=== PATIENT | male | born 1925 | race Caucasian/White ===

== ENCOUNTER 2017-01-13 14:04 | Inpatient (IN) ==
[2017-01-13] MEDS: *HR* Warfarin 5 MG TABLET PO SCH (18:21)
[2017-01-13] MEDS: *HR* Metformin 500 MG TABLET PO SCH (20:32)
[2017-01-14 05:35] LABS: Basophils # 0.1 K/mcL (0.0-0.2); Basophils % 0.7 %; Eosinophils # 0.1 K/mcL (0.0-0.6); Eosinophils % 0.4 %; Hemoglobin 18.6 g/dL (12.9-16.9); Immature Granulocytes % 0.5 % (0-4); Lymphocytes # 1.9 K/mcL (0.6-4.6); Mean Corpuscular HGB Conc 33.8 g/dL (31.6-35.5); Mean Corpuscular Hemoglobin 29.3 pg (28.0-33.3); Mean Corpuscular Volume 86.8 fL (83.0-100.0); Mean Platelet Volume 10.6 fL (9.4-12.4); Monocytes # 1.4 K/mcL (0.0-1.3); Monocytes % 8.5 %; Neutrophils # 12.4 K/mcL (1.6-8.9); Platelet Count 167 K/mcL (140-400); Red Blood Count 6.35 M/mcL (4.19-5.50); Red Cell Distribution Width 13.9 % (11.5-14.5); Segmented Neutrophils % 77.9 %
[2017-01-14 05:36] LABS: INR 1.4; Prothrombin Time 14.8 Seconds (9.4-12.1)
[2017-01-14 05:37] LABS: Activated Partial Thrombo Time 33.2 Seconds (26.0-36.0)
[2017-01-14 05:42] LABS: Hematocrit 55.1 % (37.5-50.1)
[2017-01-14 05:47] LABS: BUN/Creatinine Ratio 30 (6-26); Blood Urea Nitrogen 33 mg/dL (8-26); Calcium 9.4 mg/dL (8.6-10.8); Carbon Dioxide 21 mEq/L (19-29); Chloride 109 mEq/L (98-109); Glucose 339 mg/dL (70-99); Osmolality,Calculated 313 (280-300); Potassium 4.4 mEq/L (3.5-4.5); Sodium 141 mEq/L (136-145); eGFR For African Americans > 60 (> 60); eGFR For Non-African Americans > 60 (> 60)
[2017-01-14] MEDS: *HR* GlipiZIDE 5 MG TABLET PO SCH (09:23)
[2017-01-14] MEDS: Furosemide 20 MG TABLET PO SCH (09:23)
[2017-01-14] MEDS: *HR* Digoxin 0.125 MG TABLET PO SCH (09:23)
[2017-01-14] MEDS: Aspirin 81 MG TAB.CHEW PO SCH (09:23)
--- NOTE | 2017-01-14 11:37 | Internal Med History&Physical ---
Date of Encounter: 01/14/17 Time of Encounter: 11:35 Assessment and Plan (1) Acute CVA (cerebrovascular accident) Current visit: Yes Status: Acute MRI of the brain shows acute infarct on the right basal ganglia along with multiple lacunar infarcts on the right frontal. PT and OT to work on improving ADL. Transfer, safety balance. Speech for swallowing evaluation. (2) Urinary retention Current visit: Yes Status: Acute Orellana catheter in place Internal Medicine - H&P: HPI Admitted From: Intrahospital Transfer Plans for Post Hospital Care: Home History of present illness: Mr. Parnell is a 89 year old male admitted to this facility for rehabilitation. Patient initially presented with an acute onset of mental status with some slurred speech. He initially had left-sided neglect. He had no significant focal weakness. Patient's still has baseline cognitive and neglect of the left side of the body. He also has a right-sided gaze. He has almost complete paralysis of the left side Past Med Surg Social Fam HX - Past Medical History Medical history: coronary artery disease, CVA, diabetes, hyperlipidemia, hypertension, myocardial infarction, other Psychiatric history: no psych history - Social History Smoking Status: Former smoker Smokeless Tobacco Status: No Alcohol use: none Drug use: none Internal Medicine - H&P: Meds Atenolol [Tenormin] 25 mg PO DAILY 01/09/17 [History] Carvedilol [Coreg] 6.25 mg PO BIDWM 01/09/17 [History] Digoxin [Lanoxin] 0.125 mg PO DAILY 01/09/17 [History] GlipiZIDE [Glucotrol] 5 mg PO DAILY 01/09/17 [History] Metformin [Glucophage] 500 mg PO HS 01/09/17 [History] Aspirin 81 mg PO DAILY #30 tab.chew 01/13/17 [Rx] Atorvastatin [Lipitor] 40 mg PO HS #30 tablet 01/13/17 [Rx] Lansoprazole [Prevacid] 15 mg PO DAILY@0630 #30 capsule. 01/13/17 [Rx] Levofloxacin [Levaquin] 500 mg PO DAILY #5 tablet 01/13/17 [Rx] Warfarin [Coumadin] 5 mg PO 1800 01/13/17 [History] Furosemide [Lasix] 20 mg PO DAILY #0 01/20/17 [Rx] Allergies Penicillins [PCN] Allergy (Verified 01/09/17 14:05) See Comments All Systems PM: A 10-system review of systems was performed and is negative for pertinent findings except as documented above in the HPI. - Cardiovascular Cardiovascular ROS IM: no chest pain, no diaphoresis, no dyspnea, no lightheadedness, no palpitations, no syncope - Respiratory Respiratory: no cough, no dyspnea, no wheezing, no excessive phlegm production - Gastrointestinal Gastrointestinal: no abdominal pain, no diarrhea, no hematemesis, no hematochezia, no melena, no nausea, no vomiting - Neurological Neurological ROS: abnormal gait, abnormal movements, frequent falls, lack of coordination, weakness - Constitutional Vitals: Temp Pulse Resp BP Pulse Ox 97.3 F L 73 20 185/95 95 01/14/17 07:16 01/14/17 07:16 01/14/17 07:16 01/14/17 07:16 01/14/17 07:16 General appearance: Present: A&O X 2 - Respiratory Respiratory exam: Present: CTAB. Absent: accessory muscle use, rales, rhonchi, wheezes - Cardiovascular Cardiovascular exam: Present: RRR, +S1, +S2. Absent: diastolic murmur, gallop, rubs, systolic murmur - GI/Abdominal GI/Abdominal exam: Present: normal bowel sounds, soft, no peritoneal signs. Absent: distended, tenderness - Extremities Exam Extremities exam: Present: warm, radial pulses palpable and symetrical. Absent : calf tenderness, cyanotic, pedal edema - Neurological Exam Additional comments: Left-sided neglect. Able to squeeze hand. A port drift to the right arm noted. Awake, alert. Oriented to person. Follows commands appropriately. Significant weakness of the upper or lower extremities on the left side Internal Med - H&P Results - Labs CBC & Chem 7: 01/14/17 05:10 01/14/17 05:10 Labs: Short CBC 01/14/17 Range/Units 05:10 WBC 15.9 H (4.3-11.1) K/mcL Hgb 18.6 H (12.9-16.9) g/dL Hct 55.1 H (37.5-50.1) % Plt Count 167 (140-400) K/mcL Neutrophils # 12.4 H (1.6-8.9) K/mcL BMP 01/14/17 05:10 Sodium 141 Potassium 4.4 Chloride 109 Carbon Dioxide 21 BUN 33 H Creatinine 1.11 Glucose 339 H Calcium 9.4
[2017-01-14] MEDS: *HR* Warfarin 5 MG TABLET PO SCH (19:05)
[2017-01-14] MEDS: *HR* Metformin 500 MG TABLET PO SCH (21:50)
--- NOTE | 2017-01-15 01:49 | Internal Med Progress Note ---
Date of Encounter: 01/15/17 Time of Encounter: 09:04 - Assessment and plan (1) Acute CVA (cerebrovascular accident) Current Visit: Yes Status: Acute Assessment and plan: Left-sided neglect. Left leg flaccid. (2) Urinary retention Current Visit: Yes Status: Chronic - Time Spent With Patient less than 15 minutes - Subjective Interval history: No new voiced complaint. Still complains of generalized fatigue and feeling weak. Still confused regarding place. - Constitutional Vitals: Temp Pulse Resp BP Pulse Ox 98.2 F 72 14 135/80 94 L 01/14/17 19:46 01/14/17 19:46 01/14/17 19:46 01/14/17 19:46 01/14/17 19:46 General appearance: Present: A&O X 2 - Respiratory Respiratory exam: Present: CTAB. Absent: accessory muscle use, rales, rhonchi, wheezes - Cardiovascular Cardiovascular exam: Present: RRR, +S1, +S2. Absent: diastolic murmur, gallop, rubs, systolic murmur - GI/Abdominal GI/Abdominal exam: Present: normal bowel sounds, soft, no peritoneal signs. Absent: distended, tenderness - Extremities Exam Extremities exam: Present: warm, radial pulses palpable and symetrical. Absent : calf tenderness, cyanotic, pedal edema Internal Medicine: Result - Labs CBC & Chem 7: 01/14/17 05:10 01/14/17 05:10 Labs: Short CBC 01/14/17 Range/Units 05:10 WBC 15.9 H (4.3-11.1) K/mcL Hgb 18.6 H (12.9-16.9) g/dL Hct 55.1 H (37.5-50.1) % Plt Count 167 (140-400) K/mcL Neutrophils # 12.4 H (1.6-8.9) K/mcL BMP 01/14/17 05:10 Sodium 141 Potassium 4.4 Chloride 109 Carbon Dioxide 21 BUN 33 H Creatinine 1.11 Glucose 339 H Calcium 9.4 - ABG Interpretation ABG results: PT/INR, D-dimer PT 14.8 Seconds (9.4-12.1) H 01/14/17 05:10 Consult Discharge Plan - Plan Referrals: Devon Daugherty DO [Primary Care Provider] -
[2017-01-15 05:16] LABS: INR 1.4; Prothrombin Time 15.1 Seconds (9.4-12.1)
[2017-01-15] MEDS: Furosemide 20 MG TABLET PO SCH (08:07)
[2017-01-15] MEDS: Aspirin 81 MG TAB.CHEW PO SCH (08:07)
[2017-01-15] MEDS: *HR* GlipiZIDE 5 MG TABLET PO SCH (08:08)
[2017-01-15] MEDS: *HR* Digoxin 0.125 MG TABLET PO SCH (08:08)
[2017-01-15] MEDS: *HR* Warfarin 5 MG TABLET PO SCH (17:01)
[2017-01-15] MEDS: *HR* Metformin 500 MG TABLET PO SCH (21:15)
[2017-01-16 05:41] LABS: Basophils # 0.1 K/mcL (0.0-0.2); Basophils % 0.5 %; Eosinophils # 0.1 K/mcL (0.0-0.6); Eosinophils % 0.8 %; Hemoglobin 18.8 g/dL (12.9-16.9); Immature Granulocytes % 0.7 % (0-4); Lymphocytes # 1.9 K/mcL (0.6-4.6); Lymphocytes % 10.9 %; Mean Corpuscular HGB Conc 33.4 g/dL (31.6-35.5); Mean Corpuscular Hemoglobin 29.2 pg (28.0-33.3); Mean Corpuscular Volume 87.6 fL (83.0-100.0); Mean Platelet Volume 10.5 fL (9.4-12.4); Monocytes # 1.4 K/mcL (0.0-1.3); Monocytes % 8.1 %; Neutrophils # 13.5 K/mcL (1.6-8.9); Platelet Count 148 K/mcL (140-400); Red Blood Count 6.43 M/mcL (4.19-5.50); Red Cell Distribution Width 13.6 % (11.5-14.5)
[2017-01-16 05:52] LABS: BUN/Creatinine Ratio 31 (6-26); Blood Urea Nitrogen 36 mg/dL (8-26); Carbon Dioxide 27 mEq/L (19-29); Chloride 110 mEq/L (98-109); Glucose 289 mg/dL (70-99); INR 2.3; Osmolality,Calculated 323 (280-300); Potassium 3.9 mEq/L (3.5-4.5); Prothrombin Time 25.9 Seconds (9.4-12.1); Sodium 147 mEq/L (136-145); eGFR For African Americans > 60 (> 60); eGFR For Non-African Americans 60 (> 60)
[2017-01-16 07:36] LABS: Hematocrit 56.3 % (37.5-50.1)
[2017-01-16] MEDS: Aspirin 81 MG TAB.CHEW PO SCH (07:54)
[2017-01-16] MEDS: *HR* Digoxin 0.125 MG TABLET PO SCH (07:54)
[2017-01-16] MEDS: Furosemide 20 MG TABLET PO SCH (07:55)
[2017-01-16] MEDS: *HR* GlipiZIDE 5 MG TABLET PO SCH ×2 (07:55→17:10)
[2017-01-16] MEDS: *HR* Warfarin 5 MG TABLET PO SCH (17:10)
[2017-01-16] MEDS: *HR* Metformin 500 MG TABLET PO SCH (22:12)
[2017-01-17 05:20] LABS: INR 3.4; Prothrombin Time 38.5 Seconds (9.4-12.1)
[2017-01-17] MEDS: Furosemide 20 MG TABLET PO SCH (08:49)
[2017-01-17] MEDS: *HR* Digoxin 0.125 MG TABLET PO SCH (08:49)
[2017-01-17] MEDS: *HR* GlipiZIDE 5 MG TABLET PO SCH ×2 (08:50→17:30)
[2017-01-17] MEDS: Aspirin 81 MG TAB.CHEW PO SCH (08:50)
[2017-01-17] MEDS ORDERED: *HR* Dextrose 50 % in Water (Syg) 50 ML SYRINGE IVP PRN (12:02)
[2017-01-17] MEDS ORDERED: Dextrose Gel 15 GM PO PRN ×2 (12:02)
[2017-01-17] MEDS ORDERED: D5% in Water 1,000 ML IV PRN (12:02)
--- NOTE | 2017-01-17 13:24 | Internal Med Progress Note ---
Date of Encounter: 01/17/17 Time of Encounter: 13:22 - Assessment and plan (1) Acute CVA (cerebrovascular accident) Current Visit: Yes Status: Acute Assessment and plan: CVS CT report. Patient's working with her therapist (2) Acute ischemic right MCA stroke Current Visit: No Status: Acute Assessment and plan: The cause of his rehabilitation (3) Acute kidney injury Current Visit: No Status: Acute Assessment and plan: Patient still may have little elevation of his BUN - Time Spent With Patient less than 15 minutes - Subjective Interval history: Patient's condition is pretty poor overall. Due to his advanced age and microvascular disease along with thalamic stroke his prognosis is rather dim - Constitutional Vitals: Temp Pulse Resp BP Pulse Ox 97.8 F 58 16 151/62 95 01/17/17 07:00 01/17/17 07:00 01/17/17 07:00 01/17/17 07:00 01/17/17 07:00 General appearance: Present: A&O X 2 - Head Head exam: Present: atraumatic, normocephalic - Respiratory Respiratory exam: Present: CTAB. Absent: accessory muscle use, rales, rhonchi, wheezes - Cardiovascular Cardiovascular exam: Present: RRR, +S1, +S2. Absent: diastolic murmur, gallop, rubs, systolic murmur Internal Medicine: Result - Labs CBC & Chem 7: 01/16/17 04:55 01/16/17 04:55 - ABG Interpretation ABG results: PT/INR, D-dimer PT 38.5 Seconds (9.4-12.1) H 01/17/17 05:00 Consult Discharge Plan - Plan Referrals: Devon Daugherty DO [Primary Care Provider] -
[2017-01-17] MEDS: Insulin LISPRO 300 UNITS/3 ML VIAL SQ SCH ×2 (17:29→22:09)
[2017-01-17] MEDS ORDERED: *HR* Warfarin 3 MG TABLET PO ONE (18:00)
[2017-01-17] MEDS: *HR* Metformin 500 MG TABLET PO SCH (22:05)
[2017-01-18 05:53] LABS: Prothrombin Time 44.9 Seconds (9.4-12.1)
--- NOTE | 2017-01-18 08:36 | Internal Med Progress Note ---
Date of Encounter: 01/18/17 Time of Encounter: 08:35 - Assessment and plan (1) Acute CVA (cerebrovascular accident) Current Visit: Yes Status: Acute Assessment and plan: PT and OT working to improve balance, gait and transfer. Patient assisted with transfer from w/c to standing frame with x2 people. Patient able to tolerate about 10 minutes in standing frame noting some light headedness. Also worked on posture, needing constant cues to correct. Patient then assisted back w/c to rest. Patient noted he needed to use restroom. Assisted back to room. Patient able to complete transfer as marked with constant cues needed to attempt to use LE's.t (2) Urinary retention Current Visit: Yes Status: Chronic - Time Spent With Patient less than 15 minutes - Subjective Interval history: No new voiced complaint. Still complains of generalized fatigue and feeling weak. Still confused regarding place. Denies shortness of breath. Denies chest pain. Good appetite. - Constitutional Vitals: Temp Pulse Resp BP Pulse Ox 98.0 F 71 16 164/77 94 L 01/18/17 07:10 01/18/17 07:10 01/18/17 07:10 01/18/17 07:10 01/18/17 07:10 General appearance: Present: A&O X 2, pleasant - Respiratory Respiratory exam: Present: CTAB. Absent: accessory muscle use, rales, rhonchi, wheezes - Cardiovascular Cardiovascular exam: Present: RRR, +S1, +S2. Absent: diastolic murmur, gallop, rubs, systolic murmur - GI/Abdominal GI/Abdominal exam: Present: normal bowel sounds, soft, no peritoneal signs. Absent: distended, tenderness - Extremities Exam Extremities exam: Present: warm, radial pulses palpable and symetrical. Absent : calf tenderness, cyanotic, pedal edema - Neurological Exam Neurological exam: Present: abnormal gait, speech deficit - Expanded Neurological Exam Neurological exam expanded: Present: expressive aphasia Speech: Present: garbled Internal Medicine: Result - Labs CBC & Chem 7: 01/16/17 04:55 01/16/17 04:55 - ABG Interpretation ABG results: PT/INR, D-dimer PT 44.9 Seconds (9.4-12.1) H* 01/18/17 05:00 Consult Discharge Plan - Plan Referrals: Devon Daugherty DO [Primary Care Provider] -
[2017-01-18] MEDS: *HR* GlipiZIDE 5 MG TABLET PO SCH ×2 (08:49→17:11)
[2017-01-18] MEDS: Aspirin 81 MG TAB.CHEW PO SCH (08:49)
[2017-01-18] MEDS: Furosemide 20 MG TABLET PO SCH (08:49)
[2017-01-18] MEDS: *HR* Digoxin 0.125 MG TABLET PO SCH (08:49)
[2017-01-18] MEDS: Insulin LISPRO 300 UNITS/3 ML VIAL SQ SCH ×4 (08:50→20:14)
--- NOTE | 2017-01-18 15:58 | Physcial Medicine-Consult Note ---
Date of Encounter: 01/18/17 Time of Encounter: 15:56 Physical Medicine - AP (1) Cerebrovascular accident Status: Acute Assessment and plan: 1. Rehab: Patient will continue with PT/OT/ST/TR as tolerated to address transfers, ADLS, gait, speech, swallow and safety. His rehab is limited by his severe fatigue. We will start him on provigil to help with arousal. 2. : continue with burgos catheter Code(s): I63.9 - Cerebral infarction, unspecified SNOMED Code(s): 100837100 Physical Medicine - HPI - Data of Consult Consult date: 01/18/17 Requesting Physician: Marco Cyr DO Primary Care Provider: Lola Garcia - Consult Narrative Reason for consult: CVA History of present illness: Mr. Parnell is a 89 year old male who presented with mental status changes, slurred speech and left hemiplegia. Patient underwent an mri which revealed a right basal ganglia infarct with multiple lacunar infarcts in the right frontal lobe. He was stabilized and admitted to the swing unit for ongoing rehabilitation. CC: Marco Cyr DO Past Med Surg Social Fam HX - Past Medical History Medical history: coronary artery disease, CVA, diabetes, hyperlipidemia, hypertension, myocardial infarction, other Psychiatric history: no psych history - Social History Smoking Status: Former smoker Smokeless Tobacco Status: No Alcohol use: none Drug use: none Medications and Allergies Atenolol [Tenormin] 25 mg PO DAILY 01/09/17 [History] Carvedilol [Coreg] 6.25 mg PO BIDWM 01/09/17 [History] Digoxin [Lanoxin] 0.125 mg PO DAILY 01/09/17 [History] GlipiZIDE [Glucotrol] 5 mg PO DAILY 01/09/17 [History] Metformin [Glucophage] 500 mg PO HS 01/09/17 [History] Aspirin 81 mg PO DAILY #30 tab.chew 01/13/17 [Rx] Atorvastatin [Lipitor] 40 mg PO HS #30 tablet 01/13/17 [Rx] Lansoprazole [Prevacid] 15 mg PO DAILY@0630 #30 capsule. 01/13/17 [Rx] Levofloxacin [Levaquin] 500 mg PO DAILY #5 tablet 01/13/17 [Rx] Warfarin [Coumadin] 5 mg PO 1800 01/13/17 [History] Furosemide [Lasix] 20 mg PO DAILY #0 01/20/17 [Rx] Allergies Penicillins [PCN] Allergy (Verified 01/09/17 14:05) See Comments - Constitutional Constitutional: Present: fatigue - Cardiovascular Cardiovascular: Absent: chest pain - Respiratory Respiratory: Absent: dyspnea - Musculoskeletal Musculoskeletal: Absent: arthralgias Physical Medicine - Exam - Constitutional Vitals: Temp Pulse Resp BP Pulse Ox 98.0 F 71 16 164/77 94 L 01/18/17 07:10 01/18/17 07:10 01/18/17 07:10 01/18/17 07:10 01/18/17 07:10 Exam: Patient is lying in bed. Appears fatigued. Attempts to anwer questions. Follows simple one step commands. - Head Additional comments: No facial droop. EOMI. - Respiratory Respiratory exam: Present: CTAB - Cardiovascular Cardiovascular exam: Present: RRR - GI/Abdominal GI/Abdominal exam: Present: normal bowel sounds, soft. Absent: tenderness - Additional comments: burgos catheter in place - Extremities Exam Extremities exam: Absent: calf tenderness Additional comments: Patient able to move right upper limb without difficulty-motor strength grossly 4/5 in the right upper limb. Left upper limb with trace elbow flexion. No pain with PROM of the left arm or shoulder. No erythema or edema of the left upper limb. Evaluation of the lower limbs reveals no calf pain, no erythema or edema. DF/PF 4/5 in the bilateral lower limbs. Patient unable to participate in lower limb motor strength testing at time of evaluation. - Neurological Exam Neurological exam: Absent: reflexes normal Additional comments: reflexes are absent in the bilateral upper and lower limbs. Physical Medicine - Results - Labs CBC & Chem 7: 01/16/17 04:55 01/16/17 04:55 Consult Discharge Plan - Plan Referrals: Devon Daugherty DO [Primary Care Provider] -
[2017-01-18] MEDS: *HR* Metformin 500 MG TABLET PO SCH (17:11)
[2017-01-19 05:28] LABS: INR 3.5; Prothrombin Time 39.2 Seconds (9.4-12.1)
[2017-01-19] MEDS: Furosemide 20 MG TABLET PO SCH (08:29)
[2017-01-19] MEDS: *HR* GlipiZIDE 5 MG TABLET PO SCH ×2 (08:29→16:42)
[2017-01-19] MEDS: Aspirin 81 MG TAB.CHEW PO SCH (08:29)
[2017-01-19] MEDS: *HR* Metformin 500 MG TABLET PO SCH ×2 (08:29→16:42)
[2017-01-19] MEDS: *HR* Digoxin 0.125 MG TABLET PO SCH (08:30)
[2017-01-19] MEDS: Insulin LISPRO 300 UNITS/3 ML VIAL SQ SCH ×4 (08:31→19:59)
[2017-01-19] MEDS ORDERED: Aspirin Enteric Coated 325 MG Tablet PO PRN (13:02)
[2017-01-19] MEDS: *HR* Warfarin 2 MG TABLET PO SCH (16:42)
[2017-01-20 05:57] LABS: INR 2.6; Prothrombin Time 28.9 Seconds (9.4-12.1)
[2017-01-20] MEDS: *HR* Metformin 500 MG TABLET PO SCH ×2 (08:22→18:09)
[2017-01-20] MEDS: *HR* GlipiZIDE 5 MG TABLET PO SCH ×2 (08:22→18:09)
[2017-01-20] MEDS: *HR* Digoxin 0.125 MG TABLET PO SCH (08:22)
[2017-01-20] MEDS: Furosemide 20 MG TABLET PO SCH (08:22)
[2017-01-20] MEDS: Aspirin 81 MG TAB.CHEW PO SCH (08:22)
[2017-01-20] MEDS: Insulin LISPRO 300 UNITS/3 ML VIAL SQ SCH ×4 (08:27→20:36)
--- NOTE | 2017-01-20 15:13 | Internal Med Progress Note ---
Date of Encounter: 01/20/17 Time of Encounter: 15:00 - Assessment and plan (1) Acute CVA (cerebrovascular accident) Current Visit: Yes Status: Acute Assessment and plan: Due to this gentleman is advanced age and CVA it is very slow going. (2) Acute ischemic right MCA stroke Current Visit: No Status: Acute Assessment and plan: See above (3) Acute kidney injury Current Visit: No Status: Acute Assessment and plan: Watching kidney function - Time Spent With Patient less than 15 minutes - Subjective Interval history: Today in therapy he was unable to stand with 3 people assisting him at the parallel bars. He was placed in the upright standing device and even with 3 people this was very difficult to achieve. He tolerated about 10 minutes in the standing frame. - Constitutional Vitals: Temp Pulse Resp BP Pulse Ox 97.8 F 69 16 173/69 96 01/20/17 07:00 01/20/17 12:56 01/20/17 12:56 01/20/17 12:56 01/20/17 12:56 General appearance: Present: A&O X 2, pleasant - Head Head exam: Present: atraumatic, normal inspection, normocephalic - Neck Neck exam general surgery: Present: supple, trachea midline. Absent: lymphadenopathy - Respiratory Respiratory exam: Present: CTAB. Absent: accessory muscle use, rales, rhonchi, wheezes - Cardiovascular Cardiovascular exam: Present: RRR, +S1, +S2. Absent: diastolic murmur, gallop, rubs, systolic murmur Internal Medicine: Result - Labs CBC & Chem 7: 01/16/17 04:55 01/16/17 04:55 Labs: His lab is somewhat abnormal. I will follow up Chem-7. The main concern is making sure he does not get dehydrated - ABG Interpretation ABG results: PT/INR, D-dimer PT 28.9 Seconds (9.4-12.1) H 01/20/17 05:40 Consult Discharge Plan - Plan Referrals: Devon Daugherty DO [Primary Care Provider] -
[2017-01-20] MEDS: *HR* Warfarin 2 MG TABLET PO SCH (18:09)
[2017-01-21 05:38] LABS: INR 2.8; Prothrombin Time 31.7 Seconds (9.4-12.1)
[2017-01-21 05:57] LABS: BUN/Creatinine Ratio 38 (6-26); Blood Urea Nitrogen 47 mg/dL (8-26); Calcium 8.8 mg/dL (8.6-10.8); Carbon Dioxide 22 mEq/L (19-29); Chloride 119 mEq/L (98-109); Glucose 249 mg/dL (70-99); Osmolality,Calculated 337 (280-300); Potassium 3.8 mEq/L (3.5-4.5); Sodium 153 mEq/L (136-145); eGFR For African Americans > 60 (> 60); eGFR For Non-African Americans 55 (> 60)
[2017-01-21] MEDS: Insulin LISPRO 300 UNITS/3 ML VIAL SQ SCH ×4 (07:30→21:07)
--- NOTE | 2017-01-21 08:58 | Internal Med Progress Note ---
Date of Encounter: 01/21/17 Time of Encounter: 08:57 - Assessment and plan (1) Acute CVA (cerebrovascular accident) Current Visit: Yes Status: Acute Assessment and plan: Patient will continue with PT/OT/ST/TR as tolerated to address transfers, ADLS , gait, speech, swallow and safety. His rehab is limited by his severe fatigue. We will start him on provigil to help with arousal. (2) Urinary retention Current Visit: Yes Status: Chronic - Time Spent With Patient less than 15 minutes - Subjective Interval history: No new voiced complaint. Still complains of generalized fatigue and feeling weak. Still confused regarding place. Denies shortness of breath. Denies chest pain. Good appetite. - Constitutional Vitals: Temp Pulse Resp BP Pulse Ox 98.3 F 77 16 125/66 95 01/20/17 18:48 01/20/17 18:48 01/20/17 18:48 01/20/17 18:48 01/20/17 18:48 General appearance: Present: A&O X 2, pleasant - Respiratory Respiratory exam: Present: CTAB. Absent: accessory muscle use, rales, rhonchi, wheezes - Cardiovascular Cardiovascular exam: Present: RRR, +S1, +S2. Absent: diastolic murmur, gallop, rubs, systolic murmur - GI/Abdominal GI/Abdominal exam: Present: normal bowel sounds, soft, no peritoneal signs. Absent: distended, tenderness - Extremities Exam Extremities exam: Present: warm, radial pulses palpable and symetrical. Absent : calf tenderness, cyanotic, pedal edema Internal Medicine: Result - Labs CBC & Chem 7: 01/16/17 04:55 01/21/17 05:15 Labs: BMP 01/21/17 05:15 Sodium 153 H Potassium 3.8 Chloride 119 H Carbon Dioxide 22 BUN 47 H Creatinine 1.24 Glucose 249 H Calcium 8.8 - ABG Interpretation ABG results: PT/INR, D-dimer PT 31.7 Seconds (9.4-12.1) H 01/21/17 05:15 Consult Discharge Plan - Plan Referrals: Devon Daugherty DO [Primary Care Provider] -
[2017-01-21] MEDS: *HR* Metformin 500 MG TABLET PO SCH ×2 (09:29→17:50)
[2017-01-21] MEDS: Aspirin 81 MG TAB.CHEW PO SCH (09:29)
[2017-01-21] MEDS: Furosemide 20 MG TABLET PO SCH (09:29)
[2017-01-21] MEDS: *HR* GlipiZIDE 5 MG TABLET PO SCH ×2 (09:30→17:50)
[2017-01-21] MEDS: *HR* Digoxin 0.125 MG TABLET PO SCH (09:30)
[2017-01-21] MEDS: *HR* Warfarin 2 MG TABLET PO SCH (17:50)
[2017-01-22 05:00] LABS: INR 3.2; Prothrombin Time 35.6 Seconds (9.4-12.1)
[2017-01-22] MEDS: *HR* Metformin 500 MG TABLET PO SCH ×2 (09:03→17:47)
[2017-01-22] MEDS: *HR* Digoxin 0.125 MG TABLET PO SCH (09:03)
[2017-01-22] MEDS: Furosemide 20 MG TABLET PO SCH (09:03)
[2017-01-22] MEDS: Aspirin 81 MG TAB.CHEW PO SCH (09:03)
[2017-01-22] MEDS: *HR* GlipiZIDE 5 MG TABLET PO SCH ×2 (09:03→17:48)
[2017-01-22] MEDS: Insulin LISPRO 300 UNITS/3 ML VIAL SQ SCH ×4 (09:04→20:25)
--- NOTE | 2017-01-22 11:46 | Internal Med Progress Note ---
Date of Encounter: 01/22/17 Time of Encounter: 11:44 - Assessment and plan (1) Acute CVA (cerebrovascular accident) Current Visit: Yes Status: Acute Assessment and plan: CVA concern is advanced stage this for a difficult (2) Acute ischemic right MCA stroke Current Visit: No Status: Acute Assessment and plan: Goal the family is to try to get him over they could take care of him. (3) Acute kidney injury Current Visit: No Status: Acute Assessment and plan: Again watching the BUN etc. - Time Spent With Patient less than 15 minutes - Subjective Interval history: Today in therapy he was unable to stand with 3 people assisting him at the parallel bars. He was placed in the upright standing device and even with 3 people this was very difficult to achieve. He tolerated about 10 minutes in the standing frame. Not much change she is currently sleeping - Constitutional Vitals: Temp Pulse Resp BP Pulse Ox 97.8 F 69 16 153/78 95 01/22/17 07:40 01/22/17 07:40 01/22/17 07:40 01/22/17 07:40 01/22/17 07:40 General appearance: Present: A&O X 2, pleasant - Head Head exam: Present: atraumatic, normocephalic - Neck Neck exam general surgery: Present: supple, trachea midline. Absent: lymphadenopathy - Respiratory Respiratory exam: Present: CTAB. Absent: accessory muscle use, rales, rhonchi, wheezes - Cardiovascular Cardiovascular exam: Present: RRR, +S1, +S2. Absent: diastolic murmur, gallop, rubs, systolic murmur Internal Medicine: Result - Labs CBC & Chem 7: 01/16/17 04:55 01/21/17 05:15 Labs: After watch the BUN freeze getting dehydrated. If symptoms improve by tomorrow started IV. We have encouraged the staff to offer drinks of thickened liquids during all therapies - ABG Interpretation ABG results: PT/INR, D-dimer PT 35.6 Seconds (9.4-12.1) H 01/22/17 04:50 Consult Discharge Plan - Plan Referrals: Devon Daugherty DO [Primary Care Provider] -
[2017-01-22] MEDS: *HR* Warfarin 2 MG TABLET PO SCH (16:31)
[2017-01-23 05:34] LABS: Basophils # 0.1 K/mcL (0.0-0.2); Basophils % 0.3 %; Eosinophils # 0.1 K/mcL (0.0-0.6); Eosinophils % 0.4 %; Hematocrit 53.5 % (37.5-50.1); Hemoglobin 17.8 g/dL (12.9-16.9); Immature Granulocytes % 0.6 % (0-4); Lymphocytes # 2.3 K/mcL (0.6-4.6); Lymphocytes % 11.6 %; Mean Corpuscular HGB Conc 33.3 g/dL (31.6-35.5); Mean Corpuscular Hemoglobin 29.4 pg (28.0-33.3); Mean Corpuscular Volume 88.3 fL (83.0-100.0); Mean Platelet Volume 11.4 fL (9.4-12.4); Monocytes # 1.1 K/mcL (0.0-1.3); Monocytes % 5.7 %; Neutrophils # 16.1 K/mcL (1.6-8.9); Platelet Count 134 K/mcL (140-400); Red Blood Count 6.06 M/mcL (4.19-5.50); Red Cell Distribution Width 13.4 % (11.5-14.5); Segmented Neutrophils % 81.4 %
[2017-01-23 05:43] LABS: BUN/Creatinine Ratio 35 (6-26); Blood Urea Nitrogen 37 mg/dL (8-26); Calcium 8.5 mg/dL (8.6-10.8); Carbon Dioxide 22 mEq/L (19-29); Chloride 121 mEq/L (98-109); Glucose 180 mg/dL (70-99); INR 2.6; Osmolality,Calculated 329 (280-300); Prothrombin Time 28.3 Seconds (9.4-12.1); Sodium 153 mEq/L (136-145); eGFR For African Americans > 60 (> 60); eGFR For Non-African Americans > 60 (> 60)
[2017-01-23] MEDS: Aspirin 81 MG TAB.CHEW PO SCH (08:50)
[2017-01-23] MEDS: *HR* Digoxin 0.125 MG TABLET PO SCH (08:51)
[2017-01-23] MEDS: Furosemide 20 MG TABLET PO SCH (08:51)
[2017-01-23] MEDS: *HR* GlipiZIDE 5 MG TABLET PO SCH ×2 (08:51→17:31)
[2017-01-23] MEDS: *HR* Metformin 500 MG TABLET PO SCH ×2 (08:51→17:31)
[2017-01-23] MEDS: Insulin LISPRO 300 UNITS/3 ML VIAL SQ SCH ×4 (09:00→21:08)
--- NOTE | 2017-01-23 13:13 | Internal Med Progress Note ---
Date of Encounter: 01/23/17 Time of Encounter: 13:11 - Assessment and plan (1) Acute CVA (cerebrovascular accident) Current Visit: Yes Status: Acute Assessment and plan: Left-sided paresis show some lsight improvement presented with mental status changes, slurred speech and left hemiplegia. Patient underwent an mri which revealed a right basal ganglia infarct with multiple lacunar infarcts in the right frontal lobe. He was stabilized and admitted to the swing unit for ongoing rehabilitation. (2) Urinary retention Current Visit: Yes Status: Chronic (3) Hypernatremia Current Visit: Yes Status: Acute Assessment and plan: We will continue to monitor - Time Spent With Patient less than 15 minutes - Subjective Interval history: No new voiced complaint. Still complains of generalized fatigue and feeling weak. Still confused regarding place. Denies shortness of breath. Denies chest pain. Good appetite. - Constitutional Vitals: Temp Pulse Resp BP Pulse Ox 98.2 F 78 16 155/73 95 01/23/17 08:47 01/23/17 08:47 01/23/17 08:47 01/23/17 08:47 01/23/17 08:47 General appearance: Present: A&O X 2, pleasant - Respiratory Respiratory exam: Present: CTAB. Absent: accessory muscle use, rales, rhonchi, wheezes - Cardiovascular Cardiovascular exam: Present: RRR, +S1, +S2. Absent: diastolic murmur, gallop, rubs, systolic murmur - GI/Abdominal GI/Abdominal exam: Present: normal bowel sounds, soft, no peritoneal signs. Absent: distended, tenderness Internal Medicine: Result - Labs CBC & Chem 7: 01/23/17 04:50 01/23/17 04:50 Labs: Short CBC 01/23/17 Range/Units 04:50 WBC 19.8 H (4.3-11.1) K/mcL Hgb 17.8 H (12.9-16.9) g/dL Hct 53.5 H (37.5-50.1) % Plt Count 134 L (140-400) K/mcL Neutrophils # 16.1 H (1.6-8.9) K/mcL BMP 01/23/17 04:50 Sodium 153 H Potassium 4.0 Chloride 121 H Carbon Dioxide 22 BUN 37 H D Creatinine 1.06 Glucose 180 H Calcium 8.5 L - ABG Interpretation ABG results: PT/INR, D-dimer PT 28.3 Seconds (9.4-12.1) H 01/23/17 04:50 Consult Discharge Plan - Plan Referrals: Devon Daugherty DO [Primary Care Provider] -
[2017-01-23] MEDS: *HR* Warfarin 2 MG TABLET PO SCH (17:31)
[2017-01-23 21:45] LABS: Bilirubin,Urine Negative (Negative); Blood,Urine Large (Negative); Clarity,Urine Clear (Clear); Color,Urine Yellow (Yellow); Glucose,Urine (UA) Normal (Normal); Ketones,Urine Trace mg/dL (Negative); Leukocyte Esterase,Urine Negative (Negative); Nitrite,Urine Negative (Negative); PH,Urine 5.5 pH Units (5.0-8.0); Protein,Urine 100 mg/dL (Neg-Trace); Specific Gravity,Urine 1.025 (1.010-1.025); Urobilinogen,Urine Normal (Normal)
[2017-01-23 21:52] LABS: Mucus,Urine Moderate (Few); RBC,Urine 50-100 per hpf (0-3); Squamous Epithelial Cell,Urine Few per lpf (None-Few)
[2017-01-24 05:20] LABS: Basophils # 0.1 K/mcL (0.0-0.2); Basophils % 0.3 %; Eosinophils # 0.1 K/mcL (0.0-0.6); Eosinophils % 0.5 %; Hematocrit 53.8 % (37.5-50.1); Hemoglobin 17.7 g/dL (12.9-16.9); Immature Granulocytes % 0.6 % (0-4); Lymphocytes % 11.3 %; Mean Corpuscular HGB Conc 32.9 g/dL (31.6-35.5); Mean Corpuscular Hemoglobin 29.2 pg (28.0-33.3); Mean Corpuscular Volume 88.6 fL (83.0-100.0); Mean Platelet Volume 11.6 fL (9.4-12.4); Monocytes # 1.1 K/mcL (0.0-1.3); Platelet Count 137 K/mcL (140-400); Red Blood Count 6.07 M/mcL (4.19-5.50); Red Cell Distribution Width 13.4 % (11.5-14.5); Segmented Neutrophils % 81.3 %
[2017-01-24 05:21] LABS: INR 2.2; Neutrophils # 14.6 K/mcL (1.6-8.9); Prothrombin Time 23.9 Seconds (9.4-12.1)
[2017-01-24] MEDS: *HR* Metformin 500 MG TABLET PO SCH ×2 (07:58→17:13)
[2017-01-24] MEDS: *HR* Digoxin 0.125 MG TABLET PO SCH (07:58)
[2017-01-24] MEDS: Furosemide 20 MG TABLET PO SCH (07:58)
[2017-01-24] MEDS: Aspirin 81 MG TAB.CHEW PO SCH (07:58)
[2017-01-24] MEDS: *HR* GlipiZIDE 5 MG TABLET PO SCH ×2 (07:58→17:13)
[2017-01-24] MEDS: Insulin LISPRO 300 UNITS/3 ML VIAL SQ SCH ×4 (07:59→20:05)
[2017-01-24] MEDS: *HR* Warfarin 2 MG TABLET PO SCH (17:13)
[2017-01-25 05:40] LABS: Prothrombin Time 22.3 Seconds (9.4-12.1)
[2017-01-25 05:44] LABS: Basophils # 0.1 K/mcL (0.0-0.2); Basophils % 0.3 %; Eosinophils # 0.1 K/mcL (0.0-0.6); Eosinophils % 0.6 %; Hematocrit 53.8 % (37.5-50.1); Hemoglobin 17.6 g/dL (12.9-16.9); Immature Granulocytes % 0.6 % (0-4); Lymphocytes # 2.1 K/mcL (0.6-4.6); Lymphocytes % 12.2 %; Mean Corpuscular HGB Conc 32.7 g/dL (31.6-35.5); Mean Corpuscular Hemoglobin 29.6 pg (28.0-33.3); Mean Corpuscular Volume 90.4 fL (83.0-100.0); Mean Platelet Volume 11.3 fL (9.4-12.4); Monocytes # 1.3 K/mcL (0.0-1.3); Monocytes % 7.5 %; Neutrophils # 13.8 K/mcL (1.6-8.9); Platelet Count 133 K/mcL (140-400); Red Blood Count 5.95 M/mcL (4.19-5.50); Red Cell Distribution Width 13.3 % (11.5-14.5); Segmented Neutrophils % 78.8 %
[2017-01-25] MEDS: Insulin LISPRO 300 UNITS/3 ML VIAL SQ SCH ×4 (09:36→21:48)
[2017-01-25] MEDS: *HR* Digoxin 0.125 MG TABLET PO SCH (09:37)
[2017-01-25] MEDS: Furosemide 20 MG TABLET PO SCH (09:37)
[2017-01-25] MEDS: *HR* GlipiZIDE 5 MG TABLET PO SCH ×2 (09:38→17:15)
[2017-01-25] MEDS: *HR* Metformin 500 MG TABLET PO SCH ×2 (09:38→17:16)
[2017-01-25] MEDS: Aspirin 81 MG TAB.CHEW PO SCH (09:39)
--- NOTE | 2017-01-25 14:32 | Internal Med Progress Note ---
Date of Encounter: 01/25/17 Time of Encounter: 14:00 - Assessment and plan (1) Acute CVA (cerebrovascular accident) Current Visit: Yes Status: Acute Assessment and plan: Patient's advanced age is also part of the problem pre-existing microvascular disease. No CVA (2) Acute ischemic right MCA stroke Current Visit: No Status: Acute Assessment and plan: Same as above (3) Acute kidney injury Current Visit: No Status: Acute Assessment and plan: There is only modest change in kidney function. - Time Spent With Patient less than 15 minutes - Subjective Interval history: Patient's has the advanced age previous microvascular disease and CVA. And is struggling to even stand upright which so far has been impossible - Constitutional Vitals: Temp Pulse Resp BP Pulse Ox 97.1 F L 52 16 168/65 96 01/25/17 07:00 01/25/17 07:00 01/25/17 07:00 01/25/17 07:00 01/25/17 07:00 General appearance: Present: A&O X 2, pleasant - Head Head exam: Present: atraumatic, normocephalic - Neck Neck exam general surgery: Present: supple, trachea midline. Absent: lymphadenopathy - Respiratory Respiratory exam: Present: CTAB. Absent: accessory muscle use, rales, rhonchi, wheezes - Cardiovascular Cardiovascular exam: Present: RRR, +S1, +S2. Absent: diastolic murmur, gallop, rubs, systolic murmur Internal Medicine: Result - Labs CBC & Chem 7: 01/25/17 05:25 01/23/17 04:50 Labs: Short CBC 01/25/17 Range/Units 05:25 WBC 17.5 H (4.3-11.1) K/mcL Hgb 17.6 H (12.9-16.9) g/dL Hct 53.8 H (37.5-50.1) % Plt Count 133 L (140-400) K/mcL Neutrophils # 13.8 H (1.6-8.9) K/mcL May have to start IV to decrease his BUN. - ABG Interpretation ABG results: PT/INR, D-dimer PT 22.3 Seconds (9.4-12.1) H 01/25/17 05:25 - Impressions Impressions Chest X-Ray 01/25/17 06:00 IMPRESSION: Improving left lower lobe pneumonia. Follow-up imaging is recommended in 2 weeks to ensure complete resolution. D/ / Clayton Tarango MD / Clayton Tarango MD Interpreting Provider: Clayton Tarango MD Consult Discharge Plan - Plan Referrals: Devon Daugherty DO [Primary Care Provider] -
[2017-01-25] MEDS ORDERED: *HR* Warfarin 2.5 MG TABLET PO SCH (18:00)
[2017-01-26 06:06] LABS: INR 1.7
[2017-01-26] MEDS: Insulin LISPRO 300 UNITS/3 ML VIAL SQ SCH ×4 (07:50→20:35)
[2017-01-26] MEDS: *HR* GlipiZIDE 5 MG TABLET PO SCH ×2 (10:09→18:05)
[2017-01-26] MEDS: *HR* Digoxin 0.125 MG TABLET PO SCH (10:09)
[2017-01-26] MEDS: Aspirin 81 MG TAB.CHEW PO SCH (10:09)
[2017-01-26] MEDS: *HR* Metformin 500 MG TABLET PO SCH ×2 (10:10→18:05)
[2017-01-26] MEDS: Furosemide 20 MG TABLET PO SCH (10:10)
--- NOTE | 2017-01-26 15:26 | Internal Med Progress Note ---
Date of Encounter: 01/26/17 Time of Encounter: 15:24 - Assessment and plan (1) Acute CVA (cerebrovascular accident) Current Visit: Yes Status: Acute Assessment and plan: Testing testing testing testing. Patient is struggling to cooperate with the therapist and is not progressing very much (2) Acute ischemic right MCA stroke Current Visit: No Status: Acute Assessment and plan: Patient has some small vessel disease in addition her previous stroke in his right ischemic stroke. (3) Acute kidney injury Current Visit: No Status: Acute Assessment and plan: Much improved - Time Spent With Patient less than 15 minutes - Subjective Interval history: Patient's has the advanced age previous microvascular disease and CVA. And is struggling to even stand upright which so far has been impossible - Constitutional Vitals: Temp Pulse Resp BP Pulse Ox 98.1 F 71 16 161/77 95 01/26/17 07:00 01/26/17 07:00 01/26/17 07:00 01/26/17 07:00 01/26/17 07:00 General appearance: Present: A&O X 2, pleasant - Head Head exam: Present: atraumatic, normal inspection, normocephalic - Neck Neck exam general surgery: Present: supple, trachea midline. Absent: lymphadenopathy - Respiratory Respiratory exam: Present: CTAB. Absent: accessory muscle use, rales, rhonchi, wheezes - Cardiovascular Cardiovascular exam: Present: RRR, +S1, +S2. Absent: diastolic murmur, gallop, rubs, systolic murmur Internal Medicine: Result - Labs CBC & Chem 7: 01/25/17 05:25 01/23/17 04:50 Labs: We will recheck the lab. - ABG Interpretation ABG results: PT/INR, D-dimer PT 19.0 Seconds (9.4-12.1) H 01/26/17 05:55 Consult Discharge Plan - Plan Referrals: Devon Daugherty DO [Primary Care Provider] -
[2017-01-26] MEDS: *HR* Warfarin 3 MG TABLET PO SCH (18:05)
[2017-01-27 05:45] LABS: Basophils % 0.2 %; Eosinophils # 0.1 K/mcL (0.0-0.6); Eosinophils % 0.8 %; Hemoglobin 18.1 g/dL (12.9-16.9); Immature Granulocytes % 0.6 % (0-4); Lymphocytes # 2.2 K/mcL (0.6-4.6); Lymphocytes % 12.8 %; Mean Corpuscular HGB Conc 32.4 g/dL (31.6-35.5); Mean Corpuscular Hemoglobin 29.3 pg (28.0-33.3); Mean Corpuscular Volume 90.3 fL (83.0-100.0); Monocytes # 1.2 K/mcL (0.0-1.3); Monocytes % 6.8 %; Neutrophils # 13.6 K/mcL (1.6-8.9); Platelet Count 124 K/mcL (140-400); Red Blood Count 6.18 M/mcL (4.19-5.50); Red Cell Distribution Width 13.7 % (11.5-14.5); Segmented Neutrophils % 78.8 %
[2017-01-27 05:46] LABS: INR 1.8; Prothrombin Time 19.7 Seconds (9.4-12.1)
[2017-01-27 05:48] LABS: Hematocrit 55.8 % (37.5-50.1)
[2017-01-27 05:55] LABS: BUN/Creatinine Ratio 32 (6-26); Blood Urea Nitrogen 31 mg/dL (8-26); Calcium 8.6 mg/dL (8.6-10.8); Carbon Dioxide 26 mEq/L (19-29); Chloride 121 mEq/L (98-109); Glucose 165 mg/dL (70-99); Osmolality,Calculated 332 (280-300); Potassium 3.8 mEq/L (3.5-4.5); Sodium 156 mEq/L (136-145); eGFR For African Americans > 60 (> 60); eGFR For Non-African Americans > 60 (> 60)
[2017-01-27] MEDS: Furosemide 20 MG TABLET PO SCH (08:49)
[2017-01-27] MEDS: *HR* GlipiZIDE 5 MG TABLET PO SCH ×2 (08:49→17:33)
[2017-01-27] MEDS: Aspirin 81 MG TAB.CHEW PO SCH (08:49)
[2017-01-27] MEDS: *HR* Metformin 500 MG TABLET PO SCH ×2 (08:50→17:33)
[2017-01-27] MEDS: *HR* Digoxin 0.125 MG TABLET PO SCH (08:50)
[2017-01-27] MEDS: Insulin LISPRO 300 UNITS/3 ML VIAL SQ SCH ×4 (08:50→21:30)
--- NOTE | 2017-01-27 13:43 | Internal Med Progress Note ---
Date of Encounter: 01/27/17 Time of Encounter: 14:00 - Assessment and plan (1) Acute CVA (cerebrovascular accident) Current Visit: Yes Status: Acute Assessment and plan: Patient was noted to have CVA. By histories are previous. In addition he was noted to have microvascular disease (2) Acute ischemic right MCA stroke Current Visit: No Status: Acute Assessment and plan: This to cause of his rehabilitation (3) Acute kidney injury Current Visit: No Status: Acute Assessment and plan: Improved - Time Spent With Patient less than 15 minutes - Subjective Interval history: Staff as patient up in wheelchair taken into therapy. - Constitutional Vitals: Temp Pulse Resp BP Pulse Ox 97.7 F 52 17 162/90 94 L 01/27/17 07:00 01/27/17 07:00 01/27/17 07:00 01/27/17 07:00 01/27/17 07:00 General appearance: Present: A&O X 2, pleasant - Head Head exam: Present: atraumatic, normal inspection, normocephalic - Respiratory Respiratory exam: Present: CTAB. Absent: accessory muscle use, rales, rhonchi, wheezes - Cardiovascular Cardiovascular exam: Present: RRR, +S1, +S2. Absent: diastolic murmur, gallop, rubs, systolic murmur Internal Medicine: Result - Labs CBC & Chem 7: 01/27/17 05:25 01/27/17 05:25 Labs: Short CBC 01/27/17 Range/Units 05:25 WBC 17.3 H (4.3-11.1) K/mcL Hgb 18.1 H (12.9-16.9) g/dL Hct 55.8 H (37.5-50.1) % Plt Count 124 L (140-400) K/mcL Neutrophils # 13.6 H (1.6-8.9) K/mcL BMP 01/27/17 05:25 Sodium 156 H Potassium 3.8 Chloride 121 H Carbon Dioxide 26 BUN 31 H Creatinine 0.98 Glucose 165 H Calcium 8.6 - ABG Interpretation ABG results: PT/INR, D-dimer PT 19.7 Seconds (9.4-12.1) H 01/27/17 05:25 Consult Discharge Plan - Plan Referrals: Devon Daugherty DO [Primary Care Provider] -
[2017-01-27] MEDS: *HR* Warfarin 3 MG TABLET PO SCH (17:33)
[2017-01-28 05:42] LABS: INR 2.1; Prothrombin Time 23.3 Seconds (9.4-12.1)
[2017-01-28] MEDS: *HR* Metformin 500 MG TABLET PO SCH ×2 (08:13→17:15)
[2017-01-28] MEDS: Aspirin 81 MG TAB.CHEW PO SCH (08:13)
[2017-01-28] MEDS: *HR* Digoxin 0.125 MG TABLET PO SCH (08:13)
[2017-01-28] MEDS: *HR* GlipiZIDE 5 MG TABLET PO SCH ×2 (08:14→17:15)
[2017-01-28] MEDS: Furosemide 20 MG TABLET PO SCH (08:14)
[2017-01-28] MEDS: Insulin LISPRO 300 UNITS/3 ML VIAL SQ SCH ×4 (08:15→21:04)
[2017-01-28] MEDS: *HR* Warfarin 3 MG TABLET PO SCH (17:15)
--- NOTE | 2017-01-28 21:56 | Internal Med Progress Note ---
Date of Encounter: 01/28/17 Time of Encounter: 21:54 - Assessment and plan (1) Acute CVA (cerebrovascular accident) Current Visit: Yes Status: Acute Assessment and plan: MRI today shows minimal extension of infarct. No acute bleed. (2) Urinary retention Current Visit: Yes Status: Chronic Assessment and plan: Folic catheter reinserted today. Patient being incontinent. 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 Orellana bag and placed. MRI done today. No new voiced complaint. Still complains of generalized fatigue and feeling weak. Still confused regarding place. Denies shortness of breath. Denies chest pain. Good appetite. - Constitutional Vitals: Temp Pulse Resp BP Pulse Ox 97.9 F 80 16 106/62 92 L 01/28/17 20:00 01/28/17 20:00 01/28/17 20:00 01/28/17 20:00 01/28/17 20:00 General appearance: Present: A&O X 2, pleasant - Respiratory Respiratory exam: Present: CTAB. Absent: accessory muscle use, rales, rhonchi, wheezes - Cardiovascular Cardiovascular exam: Present: RRR, +S1, +S2. Absent: diastolic murmur, gallop, rubs, systolic murmur - GI/Abdominal GI/Abdominal exam: Present: normal bowel sounds, soft, no peritoneal signs. Absent: distended, tenderness - Extremities Exam Extremities exam: Present: warm, radial pulses palpable and symetrical. Absent : calf tenderness, cyanotic, pedal edema - Expanded Neurological Exam Ataxia: Present: yes Neuro motor strength exam: LUE: 3, LLE: 3 Coma Scale Verbal Response: Confused Internal Medicine: Result - Labs CBC & Chem 7: 01/27/17 05:25 01/27/17 05:25 - ABG Interpretation ABG results: PT/INR, D-dimer PT 23.3 Seconds (9.4-12.1) H 01/28/17 05:30 - Impressions Impressions Brain MRI 01/28/17 10:32 IMPRESSION: Motion artifact degrades the images. There is restricted diffusion along the right periventricular white matter that appears to represent extension of the previously identified infarct. Cerebral atrophy and chronic small vessel ischemic changes. D/ / 01/28/2017 14:06:05 Isadora Angeles MD / marla Interpreting Provider: Isadora Angeles MD Consult Discharge Plan - Plan Referrals: Devon Daugherty DO [Primary Care Provider] -
--- NOTE | 2017-01-28 22:01 | Internal Med Progress Note ---
Date of Encounter: 01/29/17 - Assessment and plan (1) Acute CVA (cerebrovascular accident) Current Visit: Yes Status: Acute Assessment and plan: MRI today shows minimal extension of infarct. No acute bleed. (2) Urinary retention Current Visit: Yes Status: Chronic Assessment and plan: Folic catheter reinserted today. Patient being incontinent. 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 Orellana bag and placed. MRI done today. No new voiced complaint. Still complains of generalized fatigue and feeling weak. Still confused regarding place. Denies shortness of breath. Denies chest pain. Good appetite. - Constitutional Vitals: Temp Pulse Resp BP Pulse Ox 97.9 F 80 16 106/62 92 L 01/28/17 20:00 01/28/17 20:00 01/28/17 20:00 01/28/17 20:00 01/28/17 20:00 General appearance: Present: A&O X 2, pleasant - Respiratory Respiratory exam: Present: CTAB. Absent: accessory muscle use, rales, rhonchi, wheezes - Expanded Neurological Exam Speech: Present: expressive aphasia Neuro motor strength exam: LUE: 3, LLE: 3 Internal Medicine: Result - Labs CBC & Chem 7: 01/27/17 05:25 01/27/17 05:25 - ABG Interpretation ABG results: PT/INR, D-dimer PT 23.3 Seconds (9.4-12.1) H 01/28/17 05:30 - Impressions Impressions Brain MRI 01/28/17 10:32 IMPRESSION: Motion artifact degrades the images. There is restricted diffusion along the right periventricular white matter that appears to represent extension of the previously identified infarct. Cerebral atrophy and chronic small vessel ischemic changes. D/ / 01/28/2017 14:06:05 Isadora Angeles MD / marla Interpreting Provider: Isadora Angeles MD Consult Discharge Plan - Plan Referrals: Devon Daugherty DO [Primary Care Provider] -
[2017-01-29 05:15] LABS: INR 2.6; Prothrombin Time 28.5 Seconds (9.4-12.1)
[2017-01-29] MEDS: Insulin LISPRO 300 UNITS/3 ML VIAL SQ SCH ×4 (09:00→22:25)
--- NOTE | 2017-01-29 09:55 | Internal Med Progress Note ---
Date of Encounter: 01/29/17 Time of Encounter: 09:52 - Assessment and plan (1) Acute CVA (cerebrovascular accident) Current Visit: Yes Status: Acute Assessment and plan: Low-level all alertness becoming a significant factor. We will discuss with the family regarding treatment plan if ECF an option. Becoming a poor rehabilitation candidate will repeat labs today. Chest x-ray MRI today shows minimal extension of infarct. No acute bleed. 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 Orellana bag and placed. MRI done yesterday. Has increasing bout of lethargy. - Constitutional Vitals: Temp Pulse Resp BP Pulse Ox 99.3 F 78 16 134/80 90 L 01/29/17 09:12 01/29/17 09:12 01/29/17 09:12 01/29/17 09:12 01/29/17 09:12 General appearance: Present: cachectic, disheveled - Respiratory Respiratory exam: Present: CTAB. Absent: accessory muscle use, rales, rhonchi, wheezes - Cardiovascular Cardiovascular exam: Present: RRR, +S1, +S2. Absent: diastolic murmur, gallop, rubs, systolic murmur - GI/Abdominal GI/Abdominal exam: Present: normal bowel sounds, soft, no peritoneal signs. Absent: distended, tenderness Internal Medicine: Result - Labs CBC & Chem 7: 01/27/17 05:25 01/27/17 05:25 - ABG Interpretation ABG results: PT/INR, D-dimer PT 28.5 Seconds (9.4-12.1) H 01/29/17 04:55 - Impressions Impressions Brain MRI 01/28/17 10:32 IMPRESSION: Motion artifact degrades the images. There is restricted diffusion along the right periventricular white matter that appears to represent extension of the previously identified infarct. Cerebral atrophy and chronic small vessel ischemic changes. D/ / 01/28/2017 14:06:05 Isadora Angeles MD / marla Interpreting Provider: Isadora Angeles MD Chest X-Ray 01/29/17 09:25 IMPRESSION: Asymmetric bilateral lower lobe opacities which may represent aspiration bronchiolitis/pneumonitis. D/ / Walter Saenz MD / Walter Saenz MD Interpreting Provider: Walter Saenz MD Consult Discharge Plan - Plan Referrals: Devon Daugherty DO [Primary Care Provider] -
[2017-01-29 10:01] LABS: Hemoglobin 18.6 g/dL (12.9-16.9); Mean Corpuscular HGB Conc 31.9 g/dL (31.6-35.5); Mean Corpuscular Hemoglobin 28.9 pg (28.0-33.3); Mean Corpuscular Volume 90.7 fL (83.0-100.0); Mean Platelet Volume 11.8 fL (9.4-12.4); Platelet Count 113 K/mcL (140-400); Red Blood Count 6.43 M/mcL (4.19-5.50); Red Cell Distribution Width 14.6 % (11.5-14.5)
[2017-01-29 10:09] LABS: Potassium 4.8 mEq/L (3.5-4.5)
[2017-01-29 10:20] LABS: Hematocrit 58.3 % (37.5-50.1)
[2017-01-29 10:22] LABS: Monocytes # 1.5 K/mcL (0.0-1.3); Neutrophils # 20.8 K/mcL (1.6-8.9)
[2017-01-29] MEDS: *HR* Metformin 500 MG TABLET PO SCH (10:23)
[2017-01-29] MEDS: Aspirin 81 MG TAB.CHEW PO SCH (10:24)
[2017-01-29] MEDS: *HR* GlipiZIDE 5 MG TABLET PO SCH ×2 (10:24→17:15)
[2017-01-29] MEDS: *HR* Digoxin 0.125 MG TABLET PO SCH (10:24)
[2017-01-29] MEDS: Furosemide 20 MG TABLET PO SCH (10:24)
[2017-01-29 11:54] LABS: Bilirubin,Urine Small (Negative); Blood,Urine Moderate (Negative); Clarity,Urine Clear (Clear); Color,Urine Yellow (Yellow); Glucose,Urine (UA) Normal (Normal); Ketones,Urine 15 mg/dL (Negative); Leukocyte Esterase,Urine Negative (Negative); Nitrite,Urine Negative (Negative); Protein,Urine 100 mg/dL (Neg-Trace); Specific Gravity,Urine 1.025 (1.010-1.025); Urobilinogen,Urine Normal (Normal)
[2017-01-29 12:04] LABS: Bacteria,Urine Few per hpf (None-Few); RBC,Urine 15-30 per hpf (0-3); Squamous Epithelial Cell,Urine Few per lpf (None-Few); WBC,Urine 0-3 per hpf (0-3)
[2017-01-29] MEDS: 0.9 % Sodium Chloride 1,000 ML IVC SCH ×2 (12:21→22:24)
[2017-01-29] MEDS: Levofloxacin 500 MG/100 ML 500 MG/100 ML BAG IVPB SCH (12:23)
[2017-01-29] MEDS: *HR* Warfarin 3 MG TABLET PO SCH (17:15)
[2017-01-30 05:50] LABS: Basophils # 0.1 K/mcL (0.0-0.2); Basophils % 0.3 %; Hematocrit 53.4 % (37.5-50.1); Hemoglobin 17.5 g/dL (12.9-16.9); Immature Granulocytes % 0.4 % (0-4); Lymphocytes % 6.1 %; Mean Corpuscular HGB Conc 32.8 g/dL (31.6-35.5); Mean Corpuscular Hemoglobin 29.6 pg (28.0-33.3); Mean Corpuscular Volume 90.2 fL (83.0-100.0); Mean Platelet Volume 12.8 fL (9.4-12.4); Monocytes % 5.8 %; Neutrophils # 14.9 K/mcL (1.6-8.9); Platelet Count 102 K/mcL (140-400); Red Blood Count 5.92 M/mcL (4.19-5.50); Red Cell Distribution Width 14.5 % (11.5-14.5); Segmented Neutrophils % 87.4 %
[2017-01-30 06:04] LABS: Calcium 8.3 mg/dL (8.6-10.8); Potassium 3.9 mEq/L (3.5-4.5); Prothrombin Time 53.9 Seconds (9.4-12.1)
[2017-01-30 06:05] LABS: INR 4.8
[2017-01-30] MEDS: 0.9 % Sodium Chloride 1,000 ML IVC SCH ×2 (06:52→16:00)
[2017-01-30 07:37] LABS: Anisocytosis 1+ (Not Present); Platelet Estimate Normal (Normal); Poikilocytosis 1+ (Not Present)
[2017-01-30] MEDS: Insulin LISPRO 300 UNITS/3 ML VIAL SQ SCH ×4 (10:58→21:13)
[2017-01-30] MEDS: *HR* Digoxin 0.125 MG TABLET PO SCH (10:59)
[2017-01-30] MEDS: Furosemide 20 MG TABLET PO SCH (10:59)
[2017-01-30] MEDS: Aspirin 81 MG TAB.CHEW PO SCH (10:59)
[2017-01-30] MEDS: *HR* GlipiZIDE 5 MG TABLET PO SCH ×2 (10:59→17:58)
[2017-01-30] MEDS: Levofloxacin 500 MG/100 ML 500 MG/100 ML BAG IVPB SCH (12:07)
--- NOTE | 2017-01-30 14:40 | Internal Med Progress Note ---
Date of Encounter: 01/30/17 Time of Encounter: 14:00 - Assessment and plan (1) Acute CVA (cerebrovascular accident) Current Visit: Yes Status: Acute (2) Acute ischemic right MCA stroke Current Visit: No Status: Acute (3) Acute kidney injury Current Visit: No Status: Acute - Subjective Interval history: I had a long talk with Mr. Parnell's family. The son is the POA and is the spokesperson. He has a sister present in other family members including his . The MRI edited on Monday said that he had a extension from the stroke it was seen on the previous study. Also chest x-ray says possible bibasilar infiltrates. Definite [place] and antibiotics. Currently the family is discussing hospice DM if it is not but self on home care versus half-way care. Right now everyone is working in no one is able to 5 724 hour care. They are trying to see if there are ways that they can work this out to take the patient home possibly with hospice. - Constitutional Vitals: Temp Pulse Resp BP Pulse Ox 98.6 F 74 16 118/72 92 L 01/30/17 07:06 01/30/17 07:06 01/30/17 07:06 01/30/17 07:06 01/30/17 07:06 General appearance: Present: cachectic, disheveled Internal Medicine: Result - Labs CBC & Chem 7: 01/30/17 05:00 01/30/17 05:00 Labs: Short CBC 01/30/17 Range/Units 05:00 WBC 17.0 H (4.3-11.1) K/mcL Hgb 17.5 H (12.9-16.9) g/dL Hct 53.4 H (37.5-50.1) % Plt Count 102 L (140-400) K/mcL Neutrophils # 14.9 H (1.6-8.9) K/mcL BMP 01/30/17 05:00 Sodium 159 H Potassium 3.9 Chloride 125 H Carbon Dioxide 19 BUN 80 H D Creatinine 2.59 H Glucose 343 H Calcium 8.3 L - ABG Interpretation ABG results: PT/INR, D-dimer PT 53.9 Seconds (9.4-12.1) H* D 01/30/17 05:00 Consult Discharge Plan - Plan Referrals: Devon Daugherty DO [Primary Care Provider] -
[2017-01-31] MEDS: 0.9 % Sodium Chloride 1,000 ML IVC SCH ×3 (00:45→13:40)
[2017-01-31 05:46] LABS: Calcium 8.2 mg/dL (8.6-10.8); Potassium 3.3 mEq/L (3.5-4.5)
[2017-01-31 06:00] LABS: INR 5.6; Prothrombin Time 63.6 Seconds (9.4-12.1)
[2017-01-31] MEDS: *HR* Digoxin 0.125 MG TABLET PO SCH (10:17)
[2017-01-31] MEDS: Aspirin 81 MG TAB.CHEW PO SCH (10:17)
[2017-01-31] MEDS: Insulin LISPRO 300 UNITS/3 ML VIAL SQ SCH ×4 (10:17→20:21)
[2017-01-31] MEDS: *HR* GlipiZIDE 5 MG TABLET PO SCH ×2 (10:17→17:13)
[2017-01-31] MEDS: Levofloxacin 250 MG/50 ML 250 MG/50 ML BAG IVPB SCH (13:39)
[2017-01-31] MEDS ORDERED: *HR* LORazepam 2 MG/ML VIAL IVP PRN (17:15)
[2017-01-31] MEDS: *HR* Morphine 2 MG/ML SYRINGE IVP PRN (20:22)
--- NOTE | 2017-01-31 22:46 | Internal Med Progress Note ---
Date of Encounter: 01/31/17 Time of Encounter: 22:43 - Assessment and plan (1) Acute CVA (cerebrovascular accident) Current Visit: Yes Status: Acute Assessment and plan: Lengthy discussion with family members. At this time they have agreed to consider taking the patient home in the next 2 days. They have contacted hospice and seriously considering starting hospice when the patient gets home. They requested the patient made as comfortable as possible. They do not want any aggressive intervention family has request Ativan for sedation. (2) Urinary retention Current Visit: Yes Status: Chronic (3) Hypernatremia Current Visit: Yes Status: Acute Assessment and plan: Electrolyte abnormality worsening. The patient has very minimal oral intake on his own. 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 More lethargic. Unable to maintain oral intake without choking. Having difficulty maintaining adequate oxygenation. Not cooperating with PT OT. - Constitutional Vitals: Temp Pulse Resp BP Pulse Ox 98.1 F 69 16 103/55 94 L 01/31/17 18:30 01/31/17 18:30 01/31/17 18:30 01/31/17 18:30 01/31/17 18:30 General appearance: Present: cachectic, disheveled - Respiratory Respiratory exam: Present: respiratory distress, rhonchi - Cardiovascular Cardiovascular exam: Present: irregular rhythm - GI/Abdominal GI/Abdominal exam: Present: diminished bowel sounds Internal Medicine: Result - Labs CBC & Chem 7: 01/30/17 05:00 01/31/17 05:10 Labs: BMP 01/31/17 05:10 Sodium 163 H* Potassium 3.3 L Chloride 133 H Carbon Dioxide 19 BUN 80 H Creatinine 2.01 H Glucose 194 H Calcium 8.2 L - ABG Interpretation ABG results: PT/INR, D-dimer PT 63.6 Seconds (9.4-12.1) H* 01/31/17 05:10 - Impressions Impressions Chest X-Ray 01/31/17 14:41 IMPRESSION: Development of bibasilar airspace disease right side greater than left new since prior examination D/ / Trevin Brown MD / Trevin Brown MD Interpreting Provider: Trevin Brown MD Consult Discharge Plan - Plan Referrals: Devon Daugherty DO [Primary Care Provider] -
[2017-02-01] MEDS: *HR* Morphine 2 MG/ML SYRINGE IVP PRN ×3 (08:11→21:27)
[2017-02-01] MEDS: Insulin LISPRO 300 UNITS/3 ML VIAL SQ SCH ×4 (10:49→21:58)
[2017-02-01] MEDS: *HR* GlipiZIDE 5 MG TABLET PO SCH ×2 (10:50→17:17)
[2017-02-01] MEDS: Aspirin 81 MG TAB.CHEW PO SCH (10:50)
[2017-02-01] MEDS: *HR* Digoxin 0.125 MG TABLET PO SCH (10:50)
[2017-02-01] MEDS: Levofloxacin 250 MG/50 ML 250 MG/50 ML BAG IVPB SCH (11:21)
--- NOTE | 2017-02-01 16:11 | Internal Med Progress Note ---
Date of Encounter: 02/01/17 Time of Encounter: 16:00 - Assessment and plan (1) Acute CVA (cerebrovascular accident) Current Visit: Yes Status: Acute Assessment and plan: It is reported before that the patient had extension of his previous (2) Acute ischemic right MCA stroke Current Visit: No Status: Acute Assessment and plan: See above patient's condition is poor. And comfort care measures are being used. we are using Ventimask and whatever else. Does not seem to be in pain. (3) Acute kidney injury Current Visit: No Status: Acute Assessment and plan: Significant acute kidney injury prerenal azotemia with acute renal failure - Time Spent With Patient less than 15 minutes - Subjective Interval history: Condition 2 days for family seems aware spoke with the side and there are 2 brothers in the room. He is patient is minimally responsive. It is too dangerous to try to see him her off her liquids. The fluid yesterday did not even change the BUN. Yet he is sounding wet slough scattered rhonchi in the upper airway. Patient was in the extremeness does not anticipate him to last more than 72 hours Zithromax - Constitutional Vitals: Temp Pulse Resp BP Pulse Ox 99.5 F 91 42 130/93 92 L 02/01/17 11:41 02/01/17 11:41 02/01/17 11:41 02/01/17 11:41 02/01/17 11:41 General appearance: Present: cachectic, disheveled - Head Head exam: Present: atraumatic, normal inspection, normocephalic - Neck Neck exam general surgery: Present: supple, trachea midline. Absent: lymphadenopathy - Respiratory Respiratory exam: Present: CTAB. Absent: accessory muscle use, rales, rhonchi, wheezes - Cardiovascular Cardiovascular exam: Present: RRR, +S1, +S2. Absent: diastolic murmur, gallop, rubs, systolic murmur - GI/Abdominal GI/Abdominal exam: Present: normal bowel sounds, soft, no peritoneal signs. Absent: distended, tenderness Internal Medicine: Result - Labs CBC & Chem 7: 01/30/17 05:00 01/31/17 05:10 Labs: Patient's sodium is way up to air. This is consistent with prerenal azotemia that I saw - ABG Interpretation ABG results: PT/INR, D-dimer PT 63.6 Seconds (9.4-12.1) H* 01/31/17 05:10 Consult Discharge Plan - Plan Referrals: Devon Daugherty DO [Primary Care Provider] -
[2017-02-01] MEDS ORDERED: Acetaminophen 650 MG RECTAL SUPP RC PRN (16:29)
[2017-02-02] MEDS: *HR* Morphine 2 MG/ML SYRINGE IVP PRN (06:06)
[2017-02-02] MEDS: Levofloxacin 250 MG/50 ML 250 MG/50 ML BAG IVPB SCH (11:35)
[2017-02-02] MEDS: Insulin LISPRO 300 UNITS/3 ML VIAL SQ SCH ×3 (11:36→21:09)
[2017-02-02] MEDS: Aspirin 81 MG TAB.CHEW PO SCH (11:37)
[2017-02-02] MEDS: *HR* Digoxin 0.125 MG TABLET PO SCH (11:37)
[2017-02-02] MEDS: *HR* GlipiZIDE 5 MG TABLET PO SCH ×2 (11:37→17:31)
--- NOTE | 2017-02-02 14:26 | Internal Med Progress Note ---
Date of Encounter: 02/02/17 Time of Encounter: 14:00 - Assessment and plan (1) Acute CVA (cerebrovascular accident) Current Visit: Yes Status: Acute (2) Acute ischemic right MCA stroke Current Visit: No Status: Acute (3) Acute kidney injury Current Visit: No Status: Acute - Subjective Interval history: Patient is poor. But he is maintaining vital signs so far he does not appear particularly responsive. He would be too dangerous to try to feed him. The family understands this to be transferred home tomorrow with hospice. - Constitutional Vitals: Temp Pulse Resp BP Pulse Ox 99.1 F 80 26 110/64 95 02/02/17 11:00 02/02/17 11:00 02/02/17 11:00 02/02/17 11:00 02/02/17 11:00 General appearance: Present: cachectic, disheveled - Head Head exam: Present: atraumatic, normal inspection, normocephalic - Neck Neck exam general surgery: Present: supple, trachea midline. Absent: lymphadenopathy - Respiratory Respiratory exam: Present: decreased breath sounds, CTAB. Absent: accessory muscle use, rales, rhonchi, wheezes - Cardiovascular Cardiovascular exam: Present: irregular rhythm, RRR, +S1, +S2. Absent: diastolic murmur, gallop, rubs, systolic murmur Internal Medicine: Result - Labs CBC & Chem 7: 01/30/17 05:00 01/31/17 05:10 - ABG Interpretation ABG results: PT/INR, D-dimer PT 63.6 Seconds (9.4-12.1) H* 01/31/17 05:10 Consult Discharge Plan - Plan Referrals: Devon Daugherty DO [Primary Care Provider] -
--- NOTE | 2017-02-02 14:36 | Discharge Summary ---
Date of Encounter: 02/03/17 Time of Encounter: 10:00 - Discharge Diagnosis (1) Acute CVA (cerebrovascular accident) Priority: Primary Status: Acute Comments: She was initially brought in for a CVA but he extended while he was here. (2) Acute ischemic right MCA stroke Priority: Primary Status: Acute Comments: Condition has really worsened considerably since he extended the stroke. (3) Acute kidney injury Priority: Secondary Status: Acute Comments: The prerenal azotemia as gotten worse on check lab prior to discharge tomorrow morning - Discharge Medications Home Medications: Atenolol [Tenormin] 25 mg PO DAILY 01/09/17 [History] Carvedilol [Coreg] 6.25 mg PO BIDWM 01/09/17 [History] Digoxin [Lanoxin] 0.125 mg PO DAILY 01/09/17 [History] GlipiZIDE [Glucotrol] 5 mg PO DAILY 01/09/17 [History] Metformin [Glucophage] 500 mg PO HS 01/09/17 [History] Aspirin 81 mg PO DAILY #30 tab.chew 01/13/17 [Rx] Atorvastatin [Lipitor] 40 mg PO HS #30 tablet 01/13/17 [Rx] Lansoprazole [Prevacid] 15 mg PO DAILY@0630 #30 capsule.dr 01/13/17 [Rx] Levofloxacin [Levaquin] 500 mg PO DAILY #5 tablet 01/13/17 [Rx] Warfarin [Coumadin] 5 mg PO 1800 01/13/17 [History] Furosemide [Lasix] 20 mg PO DAILY #0 01/20/17 [Rx] Allergies/Adverse Reactions: Allergies Penicillins [PCN] Allergy (Verified 01/09/17 14:05) See Comments Date of admission: 01/13/17 17:16 Primary care physician: Lola Garcia Consults: 01/13/17 17:38 Consult to Occupational Therapy [CONS] Routine Comment: Evaluate, develop and implement POC Consult to Physical Therapy [CONS] Routine Comment: Evaluate, develop and implement POC Consult to Recreational Therapy [CONS] Routine Comment: Evaluate, develop and implement POC Consult to Speech Therapy [CONS] Routine Comment: Evaluate, develop and implement POC Reason for Consult: CVA Call Completed: Yes 01/16/17 13:39 Consult to Psychology [CONS] Routine Consulting Provider: Ashley Varela Reason for Consult: advanced age Time Notified: 14:00 Call Completed: No Discharging clinician: Marco Cyr Anticipated date of discharge: 02/02/17 - Patient Status Disposition: Home, Self-Care Condition: Critical Functional capacity at discharge: bed bound Overall status at discharge: patient is not back to baseline - Discharge Instructions Follow Up With: Devon Daugherty DO [Primary Care Provider] - - Diet and Activity Activity: wear oxygen at all times Diet: other (Probably should be nothing by mouth except for table teaspoons of water) Interval History: Patient was initially referred here after CVA. Due to his advanced age he was participating the time. He had. he had acute renal failure. negative changes last week and was noted to have extension of the cVA Hospital course: Mr. Parnell is a 89 year old male Who was brought to [facility] for a CVA. Unfortunately his stroke extended while he was here in his condition now is grave family will be taking him home with hospice for comfort care. - Time Spent with Patient Total time spent providing and/or coordinating discharge services: Less than 30 minutes - Constitutional Vitals: Temp Pulse Resp BP Pulse Ox 99.1 F 80 26 110/64 95 02/02/17 11:00 02/02/17 11:00 02/02/17 11:00 02/02/17 11:00 02/02/17 11:00 General appearance: Present: cachectic, disheveled - Head Head exam: Present: atraumatic, normal inspection, normocephalic - Neck Neck exam general surgery: Present: supple, trachea midline. Absent: lymphadenopathy - Respiratory Respiratory exam: Present: decreased breath sounds, CTAB. Absent: accessory muscle use, rales, rhonchi, wheezes Additional comments: Patient has scattered rhonchi shallow respirations and is somewhat irregular. - Cardiovascular Cardiovascular exam: Present: irregular rhythm, RRR, +S1, +S2. Absent: diastolic murmur, gallop, rubs, systolic murmur Additional comments: There is some irregularity to the heart rhythm - GI/Abdominal GI/Abdominal exam: Present: normal bowel sounds, soft, no peritoneal signs. Absent: distended, tenderness - Neurological Exam Neurological exam: Present: altered, CN II-XII intact, oriented X3, no focal deficits. Absent: pronater drift, facial droop, speech deficit Additional comments: Patient is really not responsive at this point. He is breathing with a mask oxygen and color seemed to be satisfactory at the moment.
[2017-02-03] MEDS: *HR* Morphine 2 MG/ML SYRINGE IVP PRN ×2 (01:25→14:35)
[2017-02-03 07:52] VITALS: BP 122/78
[2017-02-03] MEDS: Aspirin 81 MG TAB.CHEW PO SCH (09:57)
[2017-02-03] MEDS: *HR* Digoxin 0.125 MG TABLET PO SCH (09:57)
[2017-02-03] MEDS: *HR* GlipiZIDE 5 MG TABLET PO SCH (09:57)
[2017-02-03] MEDS: Insulin LISPRO 300 UNITS/3 ML VIAL SQ SCH ×2 (09:57→11:54)
[2017-02-03] MEDS: Levofloxacin 250 MG/50 ML 250 MG/50 ML BAG IVPB SCH (11:54)
== END 2017-02-03 14:45 | disposition hospice, home (50) | DRG 56 ==
LOC: INPGRE 17:16
PROVIDERS: ADMIT Internal Medicine; ATTEND Internal Medicine